=== PATIENT | female | born 1955 | race Caucasian/White ===

== ENCOUNTER 2020-05-29 13:02 | Emergency (ER) | payer OTHER ==
[~2020-05-29] VITALS: Ht 157.5 cm; Wt 87.5 kg
[2020-05-29] MEDS ORDERED: SYNTHROID125 MCG PO (13:34)
[2020-05-29] MEDS ORDERED: COZAAR50 MG PO (13:35)
[2020-05-29] MEDS ORDERED: LIPITOR40 M1 PO (13:35)
[2020-05-29] MEDS ORDERED: METFORMIN HCL500 M3 PO (13:35)
[2020-05-29] MEDS ORDERED: CHILDREN'S ASPI81 MG PO (13:36)
[2020-05-29] MEDS ORDERED: NAPROXEN500 MG PO (21:04)
[2020-05-29] MEDS ORDERED: PEPCID AC20 MG PO (21:04)
[2020-05-29] MEDS ORDERED: ORPHENADRINE C100 MG PO (21:04)
== END 2020-05-29 21:19 | disposition home or self-care (01) ==
LOC: ER 13:02
DX: M65.28 Calcific tendinitis, other site (principal); M47.897 Other spondylosis, lumbosacral region; M25.552 Pain in left hip; M54.5 Low back pain; Z03.818 Encounter for observation for suspected exposure to other biological agents ruled out